=== PATIENT | male | born 1955 ===

== ENCOUNTER 2018-09-23 01:23 | Outpatient (CLI) | payer BC | END 2018-09-23 23:59 | disposition home or self-care (01) | LOC: DIABETIC 01:23 | PROVIDERS: ATTEND Internal Medicine | DX: E11.65 Type 2 diabetes mellitus with hyperglycemia (principal); Z79.82 Long term (current) use of aspirin; Z79.899 Other long term (current) drug therapy | CPT/HCPCS: G0108 ==

== ENCOUNTER 2018-12-28 04:44 | Outpatient (CLI) | payer BC | END 2018-12-28 23:59 | disposition home or self-care (01) | LOC: DIABETIC 04:44 | PROVIDERS: ATTEND Internal Medicine | DX: E11.9 Type 2 diabetes mellitus without complications (principal); Z71.3 Dietary counseling and surveillance | CPT/HCPCS: G0108 ==